=== PATIENT | female | born 1960 | race Caucasian/White ===

== ENCOUNTER 2017-12-13 21:41 | Emergency (ER) | payer BC ==
[2017-12-13 21:52] VITALS: BP 119/64
--- NOTE | 2017-12-13 22:06 | RADIOLOGY REPORT (SQ) ---
EXAM DESCRIPTION: ANKLE LEFT COMPLETE COMPLETED DATE/TIME: 12/13/2017 9:58 pm REASON FOR STUDY: injury COMPARISON: None. NUMBER OF VIEWS: Three views. TECHNIQUE: AP, lateral, and oblique radiographic images acquired of the left ankle. LIMITATIONS: None. FINDINGS: MINERALIZATION: Normal. BONES: No acute fracture or dislocation. No worrisome bone lesions. JOINTS: No effusions. SOFT TISSUES: Posteromedial swelling of the distal lower leg. OTHER: No other significant finding. IMPRESSION: Post remain healed swelling of the distal lower leg without underlying osseous injury. TECHNICAL DOCUMENTATION: JOB ID: [id number] [employer]- All Rights Reserved Reading location - IP/workstation name: [email or web address]
[2017-12-13] MEDS ORDERED: AMOXICILLIN TR/POT CLAVULANATE 500-125 MG TAB PO ONE (23:02)
[2017-12-13] MEDS ORDERED: DIPH/PERTUSS(ACELL)/TETANUS VAC/PF 0.5 ML SYR (>=10YO) IM ONE (23:02)
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
== END 2017-12-13 23:58 | disposition home or self-care (01) ==
LOC: ER 21:41
DX: S90.02XA Contusion of left ankle, initial encounter (principal); M25.572 Pain in left ankle and joints of left foot; X58.XXXA Exposure to other specified factors, initial encounter; S30.810A Abrasion of lower back and pelvis, initial encounter; S70.311A Abrasion, right thigh, initial encounter; W55.03XA Scratched by cat, initial encounter; Y93.K9 Activity, other involving animal care; Z23 Encounter for immunization; Z87.891 Personal history of nicotine dependence
CPT/HCPCS: 90471; 90715; 99283